=== PATIENT | male | born 2000 | race African-American/Black ===

== ENCOUNTER 2018-12-11 20:39 | Emergency (ER) | payer SELFPAY ==
[~2018-12-11] VITALS: Ht 170.2 cm; Wt 84.1 kg
[2018-12-11] MEDS ORDERED: IPRATROPIUM BROMIDE 0.5 MG/2.5 ML NEB SOLUTION NEB ONE (20:45)
[2018-12-11] MEDS ORDERED: ALBUTEROL SULFATE 5 MG/ML 20 ML NEB SOLN [BULK] NEB ONE (20:45)
[2018-12-11] MEDS ORDERED: 0.9% SODIUM CHLORIDE 15 ML NEB SOLUTION NEB ONE (20:53)
[2018-12-11] MEDS ORDERED: PredniSONE 20 MG TABLET PO ONE (22:00)
[2018-12-11] MEDS ORDERED: ALBUTEROL SULFATE HFA 90 MCG/PUFF 8 GM INHALER IH ONE (22:00)
[2018-12-11 22:58] VITALS: BP 145/85
== END 2018-12-11 23:27 | disposition home or self-care (01) ==
LOC: EMS 20:39
DX: J45.901 Unspecified asthma with (acute) exacerbation (principal)
CPT/HCPCS: 94640; 94644; 99285; J7512; 94060; J3535

== ENCOUNTER 2023-10-09 00:43 | Emergency (ER) | payer OTHER ==
[~2023-10-09] VITALS: Ht 172.7 cm; Wt 113.5 kg
[2023-10-09 00:48] VITALS: TEMP 97.7
[2023-10-09] MEDS ORDERED: PredniSONE 20 MG TABLET PO ONE (01:00)
[2023-10-09] MEDS ORDERED: IPRATROPIUM BROMIDE 0.5 MG/2.5 ML NEB SOLUTION NEB ONE (01:00)
[2023-10-09] MEDS ORDERED: ALBUTEROL SULFATE 2.5 MG/0.5 ML 5 ML NEB SOLUTION NEB ONE (01:00)
[2023-10-09 01:03] VITALS: PULSE 81; RESP 20; O2SAT 95
[2023-10-09 01:07] LABS: COVID AG,FIA SOURCE NASAL SWAB
[2023-10-09 01:26] LABS: SARS-COV2 (COVID) ANTIGEN,FIA Negative (Negative)
[2023-10-09 01:35] LABS: INFLUENZA TYPE A POSITIVE FOR TYPE A (NEGATIVE)
[2023-10-09 01:36] LABS: INFLUENZA TYPE B Presumptive Positive (NEGATIVE)
[2023-10-09 02:03] VITALS: PULSE 99; RESP 22; O2SAT 99
[2023-10-09 02:15] VITALS: BP 138/80; PULSE 84; RESP 20
[2023-10-09] MEDS ORDERED: PRED-554 PO (02:27)
[2023-10-09] MEDS ORDERED: ALBUTEROL SULFATE HFA 90 MCG/PUFF 8 GM INHALER IH ONE (02:30)
[2023-10-10] MEDS ORDERED: PRED-554 PO (13:10)
== END 2023-10-09 02:40 | disposition home or self-care (01) ==
LOC: EMS 00:44
DX: J10.1 Influenza due to other identified influenza virus with other respiratory manifestations (principal); J45.901 Unspecified asthma with (acute) exacerbation; F12.90 Cannabis use, unspecified, uncomplicated; Z20.822 Contact with and (suspected) exposure to COVID-19
CPT/HCPCS: 99285; 87426; 87804; 36415; 87502; 94644; J7512; Q9967; J3535

== ENCOUNTER 2023-12-31 23:15 | Inpatient (IN) | payer OTHER ==
[~2023-12-31] VITALS: Ht 175.3 cm; Wt 90.9 kg
[~2023-12-31 23:15] MED LIST: PRED-554 PO
[2024-01-01 01:03] LABS: EOSINOPHILS % (AUTO) 2.8 % (1.0-6.0); HEMATOCRIT 50.5 % (41-53); HEMOGLOBIN 17.4 g/dL (13.5-17.5); LYMPHOCYTES # (AUTO) 4.2 K/uL (1.0-4.8); LYMPHOCYTES % (AUTO) 48.8 % (22.0-44.0); MEAN CORPUSCULAR HEMOGLOBIN 28.8 pg (26.0-34.0); MEAN CORPUSCULAR HGB CONC 34.4 G/dL (31.0-37.0); MEAN CORPUSCULAR VOLUME 84 fL (80-100); MONOCYTES # (AUTO) 0.4 K/uL (0.1-1.0); NEUTROPHILS # (AUTO) 3.7 K/uL (1.8-7.7); NEUTROPHILS % (AUTO) 42.4 % (40.0-70.0); PLATELET COUNT (AUTO) 247 K/uL (150-450); RED BLOOD CELL COUNT(AUTO) 6.02 MIL/uL (4.50-5.90); RED CELL DISTRIBUTION WIDTH 13.7 % (11.5-14.5); WHITE BLOOD COUNT (AUTO) 8.7 K/uL (4.5-11.0)
[2024-01-01 01:10] LABS: ALANINE AMINOTRANSFERASE 63 U/L (12-78); ALBUMIN 4.6 g/dL (3.4-5.0); ALKALINE PHOSPHATASE 240 U/L (46-116); ANION GAP 27 mmol/L (8-16); ASPARTATE AMINOTRANSFERASE 35 U/L (15-37); BILIRUBIN,TOTAL 0.7 mg/dL (0.1-1.0); CALCIUM, TOTAL 9.4 mg/dL (8.8-10.5); CARBON DIOXIDE 10 mmol/L (22-29); CHLORIDE 91 mmol/L (98-107); CREATININE 1.68 mg/dL (0.60-1.30); GLOMERULAR FILTR. RATE CALC > 60 mL/min (>60); SODIUM SERUM 128 mmol/L (136-145); TOTAL PROTEIN, SERUM 8.5 g/dL (6.4-8.2); UREA NITROGEN, BLOOD 14 mg/dL (7-18)
[2024-01-01 01:14] LABS: GLUCOSE,RANDOM 559 mg/dL (70-110)
[2024-01-01] MEDS ORDERED: ACETAMINOPHEN 325 MG TABLET PO PRN (02:00)
[2024-01-01] MEDS ORDERED: ONDANSETRON HCL 4 MG/2 ML VIAL IVP PRN (02:00)
[2024-01-01] MEDS: SODIUM CHLORIDE 0.9% 1,000 ML IV ONE (02:06)
[2024-01-01 02:08] LABS: APPEARANCE,URINE CLEAR (CLEAR); BILIRUBIN,URINE NEGATIVE (NEGATIVE); COLOR,URINE COLORLESS (YELLOW); GLUCOSE, URINE (UA) >=1000 mg/dL (NEGATIVE); KETONES,URINE =>150 mg/dL (NEGATIVE); LEUKOCYTE ESTERASE ,URINE NEGATIVE (NEGATIVE); NITRATE,URINE NEGATIVE (NEGATIVE); OCCULT BLOOD,URINE SMALL (NEGATIVE); PROTEIN,URINE 30-70 mg/dL (NEGATIVE); SPECIFIC GRAVITIY, URINE 1.037 (1.003-1.030); UROBILINOGEN,URINE <=1.0 mg/dL (<=1.0)
[2024-01-01] MEDS: INSULIN REGULAR, HUMAN 100 UNITS/ML IVP ONE (02:08)
[2024-01-01 02:10] LABS: BASE EXCESS,VENOUS BLOOD GAS -14.4 (-3.3-1.2); HCO3,VENOUS BLOOD GAS 13.6 (21.0-28.0); PCO2,VENOUS BLOOD GAS 33 (40-45); PH,VENOUS BLOOD GAS 7.221 (7.360-7.410); TEMPERATURE, FAHRENHEIT, BG 98.7 FAHREN (96.0-98.6)
[2024-01-01 02:12] LABS: SOURCE, BLOOD GAS VENOUS
[2024-01-01] MEDS ORDERED: SODIUM CHLORIDE 0.45% 1,000 ML IV PRN (02:15)
[2024-01-01] MEDS ORDERED: DEXTROSE 50%-WATER 25 GM/50 ML SYRINGE IVP PRN ×2 (02:15→15:15)
[2024-01-01 02:16] LABS: BACTERIA,URINE Rare /HPF (None Seen); COARSE GRANULAR CASTS,URINE 0-2 /LPF (None Seen); RBC,URINE 0-2 /HPF (0-2); SQUAMOUS EPITHELIAL CELL,UR Few /LPF (None Seen); WBC,URINE None Seen /HPF (0-5)
[2024-01-01 02:40] LABS: CHOL/HDL RATIO 7.1 (4.2-7.3); CHOLESTEROL 298 mg/dL (131-200); HDL CHOLESTEROL 42 mg/dL (40-60); LIPASE 57 U/L (16-77); TRIGLYCERIDES 1540 mg/dL (15-150)
[2024-01-01] MEDS: SODIUM CHLORIDE 0.9% 1,000 ML IV SCH (03:41)
[2024-01-01] MEDS: POTASSIUM CHL 20 MEQ/0.45% NS 1,000 ML IV PRN (03:46)
[2024-01-01] MEDS: INSULIN REGULAR, HUMAN 100 UNITS in SODIUM CHLORIDE 0.9% 99 ML IV PRN (03:49)
[2024-01-01 04:05] LABS: COVID AG,FIA SOURCE NASAL SWAB
[2024-01-01 04:08] LABS: SARS-COV2 (COVID) ANTIGEN,FIA Negative (Negative)
[2024-01-01] MEDS: INSULIN REGULAR, HUMAN 100 UNITS/ML IVP PRN (05:04)
[2024-01-01 05:41] LABS: GLUCOMETER DEV NAME(LOC) ERT.5; GLUCOSE,POINT OF CARE 305 MG/DL (70-110)
[2024-01-01 06:17] LABS: GLUCOMETER DEV NAME(LOC) ERT.5; GLUCOSE,POINT OF CARE 206 MG/DL (70-110)
[2024-01-01 06:46] LABS: ANION GAP 23 mmol/L (8-16); CARBON DIOXIDE 11 mmol/L (22-29); CHLORIDE 104 mmol/L (98-107); CREATININE 1.37 mg/dL (0.60-1.30); GLOMERULAR FILTR. RATE CALC > 60 mL/min (>60); GLUCOSE,RANDOM 206 mg/dL (70-110); POTASSIUM 3.5 mmol/L (3.5-5.1); SODIUM SERUM 138 mmol/L (136-145); UREA NITROGEN, BLOOD 11 mg/dL (7-18)
[2024-01-01 06:50] LABS: BASOPHILS % (AUTO) 0.8 % (0.0-2.0); EOSINOPHILS % (AUTO) 1.1 % (1.0-6.0); HEMATOCRIT 44.2 % (41-53); HEMOGLOBIN 14.9 g/dL (13.5-17.5); LYMPHOCYTES # (AUTO) 3.4 K/uL (1.0-4.8); LYMPHOCYTES % (AUTO) 28.4 % (22.0-44.0); MEAN CORPUSCULAR HGB CONC 33.6 G/dL (31.0-37.0); MEAN CORPUSCULAR VOLUME 83 fL (80-100); MONOCYTES # (AUTO) 0.7 K/uL (0.1-1.0); MONOCYTES % (AUTO) 6.1 % (2.0-9.0); NEUTROPHILS # (AUTO) 7.7 K/uL (1.8-7.7); NEUTROPHILS % (AUTO) 63.6 % (40.0-70.0); PLATELET COUNT (AUTO) 204 K/uL (150-450); RED BLOOD CELL COUNT(AUTO) 5.31 MIL/uL (4.50-5.90); RED CELL DISTRIBUTION WIDTH 13.5 % (11.5-14.5); WHITE BLOOD COUNT (AUTO) 12.2 K/uL (4.5-11.0)
[2024-01-01 06:52] LABS: ALBUMIN 3.7 g/dL (3.4-5.0); ALKALINE PHOSPHATASE 169 U/L (46-116); ASPARTATE AMINOTRANSFERASE 32 U/L (15-37); BILIRUBIN,TOTAL 0.6 mg/dL (0.1-1.0); PHOSPHORUS 1.7 mg/dL (2.5-4.9); TOTAL PROTEIN, SERUM 6.8 g/dL (6.4-8.2)
[2024-01-01 07:00] LABS: ALANINE AMINOTRANSFERASE 42 U/L (12-78)
[2024-01-01 07:16] LABS: GLUCOMETER DEV NAME(LOC) ER.6; GLUCOSE,POINT OF CARE 198 MG/DL (70-110)
[2024-01-01] MEDS: HEPARIN SODIUM,PORCINE 5,000 UNITS/ML VIAL SQ SCH (07:22)
[2024-01-01] MEDS: DEXTROSE 5%-0.45% SODIUM CHL 1,000 ML IV PRN (07:53)
[2024-01-01] MEDS: DOCUSATE SODIUM 100 MG CAPSULE PO SCH (08:02)
[2024-01-01] MEDS: POTASSIUM CHLORIDE 40 MEQ in SODIUM CHLORIDE 0.45% 1,000 ML IV PRN (08:45)
[2024-01-01 09:21] LABS: GLUCOMETER DEV NAME(LOC) ER.6; GLUCOSE,POINT OF CARE 226 MG/DL (70-110)
[2024-01-01 11:16] LABS: GLUCOMETER DEV NAME(LOC) ERT.5; GLUCOSE,POINT OF CARE 184 MG/DL (70-110)
[2024-01-01 11:33] LABS: BAND NEUTROPHILS % (MANUAL) 0 % (0-5)
[2024-01-01 11:36] LABS: HEMATOCRIT 42.8 % (41-53); HEMOGLOBIN 14.5 g/dL (13.5-17.5); MEAN CORPUSCULAR HEMOGLOBIN 28.4 pg (26.0-34.0); MEAN CORPUSCULAR VOLUME 84 fL (80-100); PLATELET COUNT (AUTO) 188 K/uL (150-450); RED BLOOD CELL COUNT(AUTO) 5.11 MIL/uL (4.50-5.90); RED CELL DISTRIBUTION WIDTH 13.3 % (11.5-14.5); WHITE BLOOD COUNT (AUTO) 10.7 K/uL (4.5-11.0)
[2024-01-01 11:44] LABS: ANION GAP 16 mmol/L (8-16); CALCIUM, TOTAL 8.3 mg/dL (8.8-10.5); CARBON DIOXIDE 16 mmol/L (22-29); CHLORIDE 104 mmol/L (98-107); CREATININE 1.25 mg/dL (0.60-1.30); GLOMERULAR FILTR. RATE CALC > 60 mL/min (>60); GLUCOSE,RANDOM 188 mg/dL (70-110); POTASSIUM 3.9 mmol/L (3.5-5.1); SODIUM SERUM 136 mmol/L (136-145); UREA NITROGEN, BLOOD 8 mg/dL (7-18)
[2024-01-01 12:14] LABS: LYMPHOCYTES % (MANUAL) 40 % (22-44); MONOCYTES % (MANUAL) 6 % (2-9); RBC MORPHOLOGY COMMENT NORMAL RBC MORPH; SEGMENTED NEUTROPHILS % 54 % (40-70); TOTAL CELLS COUNTED 100
[2024-01-01 13:56] LABS: GLUCOMETER DEV NAME(LOC) ERT.5; GLUCOSE,POINT OF CARE 159 MG/DL (70-110)
[2024-01-01 14:21] LABS: GLUCOMETER DEV NAME(LOC) ERT.5; GLUCOSE,POINT OF CARE 152 MG/DL (70-110)
[2024-01-01 17:36] LABS: GLUCOMETER DEV NAME(LOC) ERT.5; GLUCOSE,POINT OF CARE 140 MG/DL (70-110)
[2024-01-01 17:36] LABS: GLUCOMETER DEV NAME(LOC) ERT.5; GLUCOSE,POINT OF CARE 140 MG/DL (70-110)
[2024-01-01 17:53] LABS: HEMOGLOBIN 14.2 g/dL (13.5-17.5); MEAN CORPUSCULAR HEMOGLOBIN 28.3 pg (26.0-34.0); MEAN CORPUSCULAR HGB CONC 33.9 G/dL (31.0-37.0); MEAN CORPUSCULAR VOLUME 84 fL (80-100); PLATELET COUNT (AUTO) 196 K/uL (150-450); RED BLOOD CELL COUNT(AUTO) 5.02 MIL/uL (4.50-5.90); RED CELL DISTRIBUTION WIDTH 13.8 % (11.5-14.5); WHITE BLOOD COUNT (AUTO) 8.1 K/uL (4.5-11.0)
[2024-01-01 17:55] LABS: ALBUMIN 3.4 g/dL (3.4-5.0); ANION GAP 14 mmol/L (8-16); CALCIUM, TOTAL 8.4 mg/dL (8.8-10.5); CARBON DIOXIDE 18 mmol/L (22-29); CHLORIDE 104 mmol/L (98-107); CREATININE 1.16 mg/dL (0.60-1.30); GLOMERULAR FILTR. RATE CALC > 60 mL/min (>60); GLUCOSE,RANDOM 150 mg/dL (70-110); POTASSIUM 4.3 mmol/L (3.5-5.1); SODIUM SERUM 136 mmol/L (136-145); UREA NITROGEN, BLOOD 6 mg/dL (7-18)
[2024-01-01 18:06] LABS: BAND NEUTROPHILS % (MANUAL) 2 % (0-5); LYMPHOCYTES % (MANUAL) 41 % (22-44); MONOCYTES % (MANUAL) 2 % (2-9); SEGMENTED NEUTROPHILS % 55 % (40-70); TOTAL CELLS COUNTED 100
[2024-01-01 18:07] LABS: RBC MORPHOLOGY COMMENT NORMAL RBC MORPH
[2024-01-01 21:01] VITALS: BP 116/86; PULSE 77; RESP 18; TEMP 98.2
[2024-01-01] MEDS: INSULIN GLARGINE,HUM.REC.ANLOG 100 UNITS/ML SQ SCH (21:08)
[2024-01-01] MEDS: CHLORHEXIDINE GLUCONATE 2% TOWELETTE [2'S/6'S] TP SCH (22:17)
[2024-01-01] MEDS: INSULIN REGULAR, HUMAN 100 UNITS/ML SQ PRN (22:22)
[2024-01-02 00:42] LABS: GLUCOMETER DEV NAME(LOC) 4E.2; GLUCOSE,POINT OF CARE 256 MG/DL (70-110)
[2024-01-02] MEDS ORDERED: PNEUMOCOCCAL VACCINE POLYVALENT 0.5 ML SYRINGE [PPSV23] IM. ONE (00:45)
[2024-01-02 02:56] VITALS: BP 123/72; PULSE 76; RESP 18; TEMP 97.6
[2024-01-02 07:12] LABS: BASOPHILS % (AUTO) 0.7 % (0.0-2.0); EOSINOPHILS % (AUTO) 4.2 % (1.0-6.0); HEMATOCRIT 42.5 % (41-53); HEMOGLOBIN 14.8 g/dL (13.5-17.5); LYMPHOCYTES # (AUTO) 3.7 K/uL (1.0-4.8); LYMPHOCYTES % (AUTO) 51.8 % (22.0-44.0); MEAN CORPUSCULAR HEMOGLOBIN 28.8 pg (26.0-34.0); MEAN CORPUSCULAR HGB CONC 34.7 G/dL (31.0-37.0); MEAN CORPUSCULAR VOLUME 83 fL (80-100); MONOCYTES # (AUTO) 0.4 K/uL (0.1-1.0); MONOCYTES % (AUTO) 6.3 % (2.0-9.0); NEUTROPHILS # (AUTO) 2.6 K/uL (1.8-7.7); PLATELET COUNT (AUTO) 204 K/uL (150-450); RED BLOOD CELL COUNT(AUTO) 5.12 MIL/uL (4.50-5.90); RED CELL DISTRIBUTION WIDTH 13.9 % (11.5-14.5)
[2024-01-02 07:27] LABS: ALANINE AMINOTRANSFERASE 55 U/L (12-78); ALBUMIN 3.4 g/dL (3.4-5.0); ALKALINE PHOSPHATASE 134 U/L (46-116); ANION GAP 15 mmol/L (8-16); ASPARTATE AMINOTRANSFERASE 32 U/L (15-37); BILIRUBIN,TOTAL 0.7 mg/dL (0.1-1.0); CALCIUM, TOTAL 8.9 mg/dL (8.8-10.5); CARBON DIOXIDE 18 mmol/L (22-29); CHLORIDE 103 mmol/L (98-107); CREATININE 1.17 mg/dL (0.60-1.30); GLOMERULAR FILTR. RATE CALC > 60 mL/min (>60); GLUCOSE,RANDOM 210 mg/dL (70-110); PHOSPHORUS 3.7 mg/dL (2.5-4.9); POTASSIUM 3.8 mmol/L (3.5-5.1); SODIUM SERUM 136 mmol/L (136-145); TOTAL PROTEIN, SERUM 6.3 g/dL (6.4-8.2); UREA NITROGEN, BLOOD 6 mg/dL (7-18)
[2024-01-02 08:21] VITALS: BP 123/53; PULSE 78; RESP 19; TEMP 98
[2024-01-02 16:46] LABS: GLUCOMETER DEV NAME(LOC) 6N.2B; GLUCOSE,POINT OF CARE 253 MG/DL (70-110)
[2024-01-02 16:46] LABS: GLUCOMETER DEV NAME(LOC) 6N.2B; GLUCOSE,POINT OF CARE 223 MG/DL (70-110)
[2024-01-02 16:46] LABS: GLUCOMETER DEV NAME(LOC) 6N.2B; GLUCOSE,POINT OF CARE 294 MG/DL (70-110)
[2024-01-02] MEDS: MetFORMIN HCL 500 MG TABLET PO SCH (16:58)
[2024-01-02 20:40] VITALS: BP 103/61; PULSE 76; RESP 18; TEMP 98.2
[2024-01-02] MEDS: INSULIN GLARGINE,HUM.REC.ANLOG 100 UNITS/ML SQ SCH (21:25)
[2024-01-02 23:41] LABS: GLUCOMETER DEV NAME(LOC) 6S.2; GLUCOSE,POINT OF CARE 440 MG/DL (70-110)
[2024-01-03 00:46] LABS: GLUCOMETER DEV NAME(LOC) 4E.2; GLUCOSE,POINT OF CARE 369 MG/DL (70-110)
[2024-01-03 05:06] VITALS: BP 140/63; PULSE 86; RESP 18; TEMP 98.1
[2024-01-03 06:47] LABS: GLUCOMETER DEV NAME(LOC) 6N.2B; GLUCOSE,POINT OF CARE 284 MG/DL (70-110)
[2024-01-03 07:41] LABS: ALANINE AMINOTRANSFERASE 51 U/L (12-78); ALBUMIN 3.2 g/dL (3.4-5.0); ALKALINE PHOSPHATASE 135 U/L (46-116); ANION GAP 14 mmol/L (8-16); ASPARTATE AMINOTRANSFERASE 21 U/L (15-37); BILIRUBIN,TOTAL 0.7 mg/dL (0.1-1.0); CALCIUM, TOTAL 8.7 mg/dL (8.8-10.5); CARBON DIOXIDE 20 mmol/L (22-29); CHLORIDE 102 mmol/L (98-107); GLOMERULAR FILTR. RATE CALC > 60 mL/min (>60); GLUCOSE,RANDOM 269 mg/dL (70-110); PHOSPHORUS 3.8 mg/dL (2.5-4.9); POTASSIUM 3.3 mmol/L (3.5-5.1); SODIUM SERUM 136 mmol/L (136-145); UREA NITROGEN, BLOOD 8 mg/dL (7-18)
[2024-01-03 08:12] VITALS: BP 112/56; PULSE 75; RESP 18; TEMP 98
[2024-01-03] MEDS ORDERED: POTASSIUM CHL 10 MEQ/WATER 50 ML IV PRN (12:00)
[2024-01-03] MEDS ORDERED: MAGNESIUM OXIDE 400 MG TABLET PO PRN (12:00)
[2024-01-03] MEDS ORDERED: MAGNESIUM SULFATE 4 GM/WATER 100 ML IV PRN (12:00)
[2024-01-03 12:31] LABS: GLUCOMETER DEV NAME(LOC) 6N.2B; GLUCOSE,POINT OF CARE 303 MG/DL (70-110)
[2024-01-03] MEDS: SODIUM CHLORIDE 0.9% 1,000 ML IV ONE (13:30)
[2024-01-03] MEDS: POTASSIUM CHLORIDE 20 MEQ ER TABLET PO PRN (13:31)
[2024-01-03] MEDS: MAGNESIUM SULFATE 2 GM/WATER 50 ML IV PRN (14:17)
[2024-01-03 16:22] VITALS: BP 127/66; PULSE 87; RESP 18; TEMP 98
[2024-01-03 19:43] VITALS: BP 106/86; PULSE 72; RESP 20; TEMP 98
[2024-01-03 20:26] LABS: GLUCOMETER DEV NAME(LOC) 6N.2B; GLUCOSE,POINT OF CARE 276 MG/DL (70-110)
[2024-01-03] MEDS: INSULIN GLARGINE,HUM.REC.ANLOG 100 UNITS/ML SQ SCH (20:36)
[2024-01-03 21:21] LABS: GLUCOMETER DEV NAME(LOC) 4E.2; GLUCOSE,POINT OF CARE 373 MG/DL (70-110)
[2024-01-04 03:41] VITALS: BP 105/58; PULSE 64; RESP 20; TEMP 97.7
[2024-01-04 07:11] LABS: EOSINOPHILS % (AUTO) 4.6 % (1.0-6.0); HEMATOCRIT 40.9 % (41-53); HEMOGLOBIN 14.1 g/dL (13.5-17.5); LYMPHOCYTES # (AUTO) 4.9 K/uL (1.0-4.8); LYMPHOCYTES % (AUTO) 62.8 % (22.0-44.0); MEAN CORPUSCULAR HEMOGLOBIN 28.6 pg (26.0-34.0); MEAN CORPUSCULAR HGB CONC 34.5 G/dL (31.0-37.0); MEAN CORPUSCULAR VOLUME 83 fL (80-100); MONOCYTES # (AUTO) 0.5 K/uL (0.1-1.0); MONOCYTES % (AUTO) 5.8 % (2.0-9.0); NEUTROPHILS % (AUTO) 25.8 % (40.0-70.0); PLATELET COUNT (AUTO) 204 K/uL (150-450); RED BLOOD CELL COUNT(AUTO) 4.93 MIL/uL (4.50-5.90); WHITE BLOOD COUNT (AUTO) 7.7 K/uL (4.5-11.0)
[2024-01-04 07:24] LABS: ANION GAP 9 mmol/L (8-16); CALCIUM, TOTAL 8.8 mg/dL (8.8-10.5); CARBON DIOXIDE 25 mmol/L (22-29); CHLORIDE 103 mmol/L (98-107); CREATININE 1.04 mg/dL (0.60-1.30); GLOMERULAR FILTR. RATE CALC > 60 mL/min (>60); GLUCOSE,RANDOM 264 mg/dL (70-110); POTASSIUM 3.5 mmol/L (3.5-5.1); SODIUM SERUM 137 mmol/L (136-145); UREA NITROGEN, BLOOD 6 mg/dL (7-18)
[2024-01-04 08:15] LABS: GLUCOMETER DEV NAME(LOC) 6N.2B; GLUCOSE,POINT OF CARE 261 MG/DL (70-110)
[2024-01-04 08:36] VITALS: BP 126/66; PULSE 89; RESP 19; TEMP 98.5
[2024-01-04] MEDS ORDERED: INSLAN SQ (09:56)
[2024-01-04] MEDS ORDERED: METF-1185 PO (09:56)
[2024-01-04 16:01] LABS: GLUCOMETER DEV NAME(LOC) 6S.2; GLUCOSE,POINT OF CARE 309 MG/DL (70-110)
== END 2024-01-04 12:13 | disposition home or self-care (01) | DRG 420 ==
LOC: EMS 23:17 → ICUN 01-01 02:02 → 6N 01-01 20:33
PROVIDERS: ADMIT Internal Medicine; ATTEND Internal Medicine
DX: E11.10 Type 2 diabetes mellitus with ketoacidosis without coma (principal); N17.0 Acute kidney failure with tubular necrosis; E66.9 Obesity, unspecified; Z68.29 Body mass index [BMI] 29.0-29.9, adult; E87.6 Hypokalemia; E83.42 Hypomagnesemia; Z20.822 Contact with and (suspected) exposure to COVID-19; J45.909 Unspecified asthma, uncomplicated; Z79.4 Long term (current) use of insulin; Z79.84 Long term (current) use of oral hypoglycemic drugs; Z83.3 Family history of diabetes mellitus
CPT/HCPCS: 71045; 80048; 80053; 80061; 81001; 82009; 82040; 82570; 82805; 82962; 83036; 83690; 83735; 83930; 83935; 84100; 84132; 84300; 85007; 85025; 85027; 93005; 99291; G0238; J1644; J1815; J3475; J3480; J7030; J7050; 36415-L1; 36415-TC

== ENCOUNTER 2025-08-31 10:58 | Inpatient (IN) | payer OTHER ==
[~2025-08-31] VITALS: Ht 172.7 cm; Wt 100.0 kg
[~2025-08-31 10:58] MED LIST changes: +ALBU18HF7 IH; +AMOX-457 PO; +BECL10.62 IH; +INSLAN SQ; +METF-1185 PO; +OSEL75CA17 PO; -PRED-554 PO; +PRED-729 PO; +SEMA0.258 SQ
[2025-08-31 12:44] LABS: PLATELET COUNT (AUTO) 235 K/uL (150-450); RED BLOOD CELL COUNT(AUTO) 6.04 MIL/uL (4.50-5.90); RED CELL DISTRIBUTION WIDTH 12.9 % (11.5-14.5); WHITE BLOOD COUNT (AUTO) 9.0 K/uL (4.5-11.0)
[2025-08-31 12:57] LABS: CALCIUM, TOTAL 9.2 mg/dL (8.8-10.5); CREATININE 1.04 mg/dL (0.60-1.30); GLOMERULAR FILTR. RATE CALC > 60 mL/min (>60); GLUCOSE,RANDOM 246 mg/dL (70-110); SODIUM SERUM 139 mmol/L (136-145); UREA NITROGEN, BLOOD 7 mg/dL (7-18)
[2025-08-31] MEDS: INSULIN REGULAR, HUMAN 100 UNITS/ML SQ ONE (13:03)
[2025-08-31] MEDS ORDERED: HEPARIN SODIUM,PORCINE 5,000 UNITS/ML VIAL IVP PRN (14:15)
[2025-08-31] MEDS: HEPARIN SODIUM,PORCINE 5,000 UNITS/ML VIAL IVP ONE (15:34)
[2025-08-31] MEDS: HEPARIN SODIUM 25000 UNITS/D5W 250 ML IV PRN (15:35)
[2025-08-31] MEDS ORDERED: ONDANSETRON HCL 4 MG/2 ML VIAL IVP PRN (16:30)
[2025-08-31] MEDS ORDERED: ACETAMINOPHEN 325 MG TABLET PO PRN (16:30)
[2025-08-31] MEDS ORDERED: MORPHINE SULFATE 4 MG/ML SYRINGE IVP PRN (16:30)
[2025-08-31] MEDS ORDERED: BISACODYL 10 MG RECTAL RECTAL SUPPOSITORY PR PRN (16:30)
[2025-08-31] MEDS ORDERED: ZOLPIDEM TARTRATE 5 MG TABLET PO PRN (16:30)
[2025-08-31] MEDS ORDERED: MAGNESIUM HYDROXIDE SUSPENSION 30 ML UDCUP PO PRN (16:30)
[2025-08-31] MEDS ORDERED: ALBUTEROL SULFATE HFA 90 MCG/PUFF 8 GM INHALER IH PRN (16:30)
[2025-08-31] MEDS: DOCUSATE SODIUM 100 MG CAPSULE PO SCH (20:16)
[2025-08-31] MEDS: HYDROCODONE/ACETAMINOPHEN 5-325 MG TABLET PO PRN (20:37)
[2025-08-31] MEDS: INSULIN GLARGINE,HUM.REC.ANLOG 100 UNITS/ML SQ SCH (21:34)
[2025-08-31 23:07] VITALS: BP 145/90; PULSE 75; RESP 19; TEMP 98.8; O2SAT 96
[2025-09-01 04:23] VITALS: BP 125/75; PULSE 85; RESP 18; TEMP 98.4; O2SAT 95
[2025-09-01 06:25] LABS: GLUCOMETER DEV NAME(LOC) 6N.2C; GLUCOSE,POINT OF CARE 240 MG/DL (70-110)
[2025-09-01 06:58] LABS: PLATELET COUNT (AUTO) 240 K/uL (150-450); RED BLOOD CELL COUNT(AUTO) 5.42 MIL/uL (4.50-5.90); RED CELL DISTRIBUTION WIDTH 12.7 % (11.5-14.5); WHITE BLOOD COUNT (AUTO) 11.9 K/uL (4.5-11.0)
[2025-09-01 08:07] VITALS: BP 125/64; PULSE 78; RESP 18; TEMP 98.1; O2SAT 64
[2025-09-01] MEDS: PANTOPRAZOLE SODIUM 40 MG DR TABLET PO SCH (08:19)
[2025-09-01] MEDS: HEPARIN SODIUM,PORCINE 5,000 UNITS/ML VIAL IVP PRN (09:24)
[2025-09-01 15:22] VITALS: BP 129/74; PULSE 91; RESP 20; TEMP 98.4; O2SAT 98
[2025-09-01 19:54] LABS: APPEARANCE,URINE CLEAR (CLEAR); GLUCOSE, URINE (UA) 150-200 mg/dL (NEGATIVE); LEUKOCYTE ESTERASE ,URINE NEGATIVE (NEGATIVE); NITRATE,URINE NEGATIVE (NEGATIVE); OCCULT BLOOD,URINE NEGATIVE (NEGATIVE); SPECIFIC GRAVITIY, URINE 1.012 (1.003-1.030)
[2025-09-01 20:23] VITALS: BP 132/80; PULSE 75; RESP 18; TEMP 98.4; O2SAT 96
[2025-09-01 20:29] LABS: SQUAMOUS EPITHELIAL CELL,UR Rare /LPF (None Seen)
[2025-09-02 04:12] VITALS: BP 144/84; PULSE 87; RESP 18; TEMP 98.2; O2SAT 96
[2025-09-02 08:38] VITALS: BP 133/85; PULSE 72; RESP 18; TEMP 98.1; O2SAT 100
[2025-09-02] MEDS ORDERED: APIX5TAB PO (09:58)
[2025-09-02 12:01] LABS: GLUCOMETER DEV NAME(LOC) 6N.1C; GLUCOSE,POINT OF CARE 211 MG/DL (70-110)
[2025-09-02 15:15] VITALS: BP 127/77; PULSE 72; RESP 18; TEMP 98.4; O2SAT 98
[2025-09-02 21:25] LABS: GLUCOMETER DEV NAME(LOC) 4S.2; GLUCOSE,POINT OF CARE 165 MG/DL (70-110)
[2025-09-03 05:31] LABS: GLUCOMETER DEV NAME(LOC) 6N.2C; GLUCOSE,POINT OF CARE 183 MG/DL (70-110)
[2025-09-04 20:07] LABS: ANTITHROMBIN ANTIGEN 122 % (72-124); ANTITHROMBIN, ENZYMATIC ACTVTY 134 % (75-135); PROTEIN S, FREE 141 % (61-136)
== END 2025-09-02 17:15 | disposition home or self-care (01) | DRG 197 ==
LOC: EMS 10:58 → EDH 16:17 → 4E 22:28
PROVIDERS: ADMIT Internal Medicine; ATTEND Internal Medicine
DX: I82.422 Acute embolism and thrombosis of left iliac vein (principal); I82.412 Acute embolism and thrombosis of left femoral vein; E11.65 Type 2 diabetes mellitus with hyperglycemia; E66.9 Obesity, unspecified; J45.909 Unspecified asthma, uncomplicated; E78.00 Pure hypercholesterolemia, unspecified; F41.9 Anxiety disorder, unspecified; Z79.01 Long term (current) use of anticoagulants; Z79.4 Long term (current) use of insulin; Z68.33 Body mass index [BMI] 33.0-33.9, adult
CPT/HCPCS: 80048; 81001; 82962; 85025; 85300; 85301; 85302; 85303; 85305; 85306; 85379; 85610; 85730; 86225; 93971; 96372; 96374; 99285; G0378; J1644; J1815